=== PATIENT | male | born 1950 | race Caucasian/White ===

== ENCOUNTER 2017-06-23 08:31 | Emergency (ER) | payer MEDICARE, BC ==
[2017-06-23 09:28] VITALS: BP 124/69
--- NOTE | 2017-06-23 09:43 | UC ---
Complaint Male HPI - HPI Summary HPI Summary: pt presents with c/o urinary symptoms of dysuria, frequency and urgency X 1 day. Pt has history of BPH and UTI's. Pt has been traveling by car from [place], due to travel back in 3 days. - History of Current Complaint Chief Complaint: UCGU Stated Complaint: URINARY COMPLAINT Hx Obtained From: Patient Onset/Duration: Sudden Onset, Lasting Days - 1, Still Present Timing: Lasting Days Severity Initially: Mild Severity Currently: Moderate Character: Burning Associated Signs And Symptoms: Positive: Dysuria - Allergies/Home Medications Allergies/Adverse Reactions: Allergies Allergy/AdvReac Type Severity Reaction Status Date / Time No Known Allergies Allergy Verified 06/23/17 09:07 PMH/Surg Hx/FS Hx/Imm Hx Previously Healthy: Yes GI/ History: Other - BPH, UTI Other GI/ History: BPH - Surgical History Surgical History: Yes Surgery Procedure, Year, and Place: CARPAL TUNNEL B/L. COCCYX REMOVED DUE TO NON-HEALING FX. PROSTATE SX. LEFT SHOULDER SX--10/23/13 - Family History Known Family History: Positive: Hypertension - Social History Occupation: Retired Lives: With Family Alcohol Use: None Substance Use Type: None Smoking Status (MU): Heavy Every Day Tobacco Smoker Type: Smokeless Tobacco Amount Used/How Often: 1 can/2 days Length of Time of Smoking/Using Tobacco: since age 23 Have You Smoked in the Last Year: Yes - Immunization History Vaccination Up to Date: No Review of Systems Constitutional: Fatigue Skin: Negative Eyes: Negative ENT: Negative Respiratory: Negative Cardiovascular: Negative Gastrointestinal: Negative Genitourinary: Dysuria, Frequency, Urgency Motor: Negative Neurovascular: Negative Musculoskeletal: Negative Neurological: Negative Psychological: Negative Is Patient Immunocompromised?: No All Other Systems Reviewed And Are Negative: Yes Physical Exam Triage Information Reviewed: Yes Appearance: Well-Appearing Vital Signs: Initial Vital Signs Temp 96.4 F 06/23/17 08:59 Pulse 87 06/23/17 08:59 Resp 16 06/23/17 08:59 BP 124/69 06/23/17 08:59 Pulse Ox 98 06/23/17 08:59 Vital Signs Reviewed: Yes Eye Exam: Normal ENT Exam: Normal Dental Exam: Normal Neck exam: Normal Respiratory Exam: Normal Cardiovascular Exam: Normal Abdominal Exam: Normal Abdomen Description: Positive: Nontender Musculoskeletal Exam: Normal Neurological Exam: Normal Psychological Exam: Normal Skin Exam: Normal Complaint Male Course/Dx - Course Course Of Treatment: I discussed with the pt the need to follow up with his pCP and URologist. I discussed the risk factors associated with taking Cipro. I discussed with the pt the plan of care and he verbalized understanding and agreed to plan of care. - Differential Dx/Diagnosis Differential Diagnosis/HQI/PQRI: Urinary Tract Infection, Other - urosepsis Provider Diagnoses: UTI Discharge - Discharge Plan Condition: Stable Disposition: HOME Prescriptions: Ciprofloxacin TAB* [Cipro 500 MG TAB*] 500 mg PO Q12H #14 tab Phenazopyridine TAB* [Pyridium 100 mg TAB*] 100 mg PO Q8H #6 tab Patient Education Materials: Urinary Tract Infection in Men (ED) Referrals: Non Staff,Doctor [Primary Care Provider] - As Soon As Possible Additional Instructions: Please follow up with your PCP and your Urologist as needed.
--- NOTE | 2017-06-25 07:18 | UC ---
Progress - Progress Note Progress Note: no change
== END 2017-06-23 09:50 | disposition home or self-care (01) ==
LOC: UCCORT 08:31
DX: N39.0 Urinary tract infection, site not specified (principal); B96.1 Klebsiella pneumoniae [K. pneumoniae] as the cause of diseases classified elsewhere; R53.83 Other fatigue; N40.0 Benign prostatic hyperplasia without lower urinary tract symptoms; F17.220 Nicotine dependence, chewing tobacco, uncomplicated
CPT/HCPCS: 81003; 87077; 87086; 87186; 99212; G0463

== ENCOUNTER 2019-06-27 12:52 | Emergency (ER) | payer MEDICARE, BC ==
[2019-06-27 13:58] VITALS: BP 158/74
--- NOTE | 2019-06-27 14:42 | UC ---
Respiratory Complaint HPI - History of Current Complaint Chief Complaint: UCRespiratory Stated Complaint: COUGH,THROAT COMPLAINT Time Seen by Provider: 06/27/19 14:41 Hx Obtained From: Patient Pain Intensity: 5 - Allergies/Home Medications Allergies/Adverse Reactions: Allergies Allergy/AdvReac Type Severity Reaction Status Date / Time No Known Allergies Allergy Verified 06/27/19 13:49 Home Medications: Home Medications Insulin GLARGINE(*) [Lantus(*)] 100 units SUBCUT Q24H 06/27/19 [History Confirmed 06/27/19] PMH/Surg Hx/FS Hx/Imm Hx - Surgical History Surgical History: Yes Surgery Procedure, Year, and Place: CARPAL TUNNEL B/L. COCCYX REMOVED DUE TO NON-HEALING FX. PROSTATE SX. LEFT SHOULDER SX--10/23/13 - Family History Known Family History: Positive: Hypertension - Social History Alcohol Use: None Substance Use Type: None Smoking Status (MU): Smoker, Current Status Unknown Type: Smokeless Tobacco Amount Used/How Often: 1 can every other day Length of Time of Smoking/Using Tobacco: since age 23 Have You Smoked in the Last Year: Yes - Immunization History Vaccination Up to Date: No Physical Exam Vital Signs: Initial Vital Signs Temp 97.5 F 06/27/19 13:52 Pulse 75 06/27/19 13:52 Resp 17 06/27/19 13:52 BP 158/74 06/27/19 13:52 Pulse Ox 98 06/27/19 13:52 Discharge ED - Discharge Plan Referrals: No Primary Care Phys,NOPCP [Primary Care Provider] - Additional Instructions: Your blood pressure is elevated today to 158/74; please ensure that you have a follow up blood pressure check within 4 weeks.
--- NOTE | 2019-06-27 14:53 | UC ---
Respiratory Complaint HPI - HPI Summary HPI Summary: 68yo diabetic, visiting from [place], with several days of cough and wheeze, with associated chills and malaise. Appetite normal. Blood sugars have been running in his usual range with a fasting of 116 this morning. No history of respiratory illness. - History of Current Complaint Chief Complaint: UCRespiratory Stated Complaint: COUGH,THROAT COMPLAINT Hx Obtained From: Patient Onset/Duration: Gradual Onset Timing: Intermittent Episodes Severity Initially: Mild Severity Currently: Moderate Pain Intensity: 5 Character: Cough: Productive Aggravating Factors: Exertion Alleviating Factors: OTC Meds - using cough and cold preparation Associated Signs And Symptoms: Positive: Chills, Wheezing, Nasal Congestion - Risk Factors Pulmonary Embolism Risk Factors: Negative Cardiac Risk Factors: Hypertension, Diabetes Pseudomonas Risk Factors: Negative Tuberculosis Risk Factors: Negative - Allergies/Home Medications Allergies/Adverse Reactions: Allergies Allergy/AdvReac Type Severity Reaction Status Date / Time No Known Allergies Allergy Verified 06/27/19 13:49 Home Medications: Home Medications Insulin GLARGINE(*) [Lantus(*)] 100 units SUBCUT Q24H 06/27/19 [History Confirmed 06/27/19] PMH/Surg Hx/FS Hx/Imm Hx Endocrine History: Diabetes Cardiovascular History: Hypertension - Surgical History Surgical History: Yes Surgery Procedure, Year, and Place: CARPAL TUNNEL B/L. COCCYX REMOVED DUE TO NON-HEALING FX. PROSTATE SX. LEFT SHOULDER SX--10/23/13 - Family History Known Family History: Positive: Hypertension - Social History Occupation: Retired Lives: With Family Alcohol Use: None Substance Use Type: None Smoking Status (MU): Smoker, Current Status Unknown Type: Smokeless Tobacco Amount Used/How Often: 1 can every other day Length of Time of Smoking/Using Tobacco: since age 23 Have You Smoked in the Last Year: Yes - Immunization History Vaccination Up to Date: No Review of Systems All Other Systems Reviewed And Are Negative: Yes Constitutional: Positive: Chills Skin: Positive: Negative Eyes: Positive: Negative ENT: Positive: Sore Throat, Sinus Congestion Respiratory: Positive: Shortness Of Breath, Cough Cardiovascular: Negative: Palpitations, Chest Pain Gastrointestinal: Positive: Negative Genitourinary: Positive: Negative Motor: Positive: Negative Neurovascular: Positive: Negative Musculoskeletal: Positive: Negative Neurological: Positive: Negative Psychological: Positive: Negative Is Patient Immunocompromised?: No Physical Exam Triage Information Reviewed: Yes Appearance: Well-Appearing, No Pain Distress, Obese Vital Signs: Initial Vital Signs Temp 97.5 F 06/27/19 13:52 Pulse 75 06/27/19 13:52 Resp 17 06/27/19 13:52 BP 158/74 06/27/19 13:52 Pulse Ox 98 06/27/19 13:52 ENT: Positive: Pharyngeal erythema, TMs normal Respiratory: Positive: Decreased breath sounds, Rhonchi - throughout both lung vila Cardiovascular: Positive: RRR, No Murmur Musculoskeletal Exam: Normal Musculoskeletal: Positive: Strength Intact Neurological Exam: Normal Psychological Exam: Normal Skin Exam: Normal Respiratory Course/Dx - Course Course Of Treatment: Findings of bronchitis in 68 yo man, with increased wheeze today. Given hx of diabetes, decision made to treat with an antibiotic. Discussed use of symptomatic cough suppressant and cold preparation. - Differential Dx/Diagnosis Differential Diagnosis/HQI/PQRI: Bronchitis Provider Diagnosis: Bronchitis Discharge ED - Sign-Out/Discharge Documenting (check all that apply): Patient Departure All imaging exams completed and their final reports reviewed: No Studies - Discharge Plan Condition: Stable Disposition: HOME Prescriptions: Amoxicillin PO (*) [Amoxicillin 875 MG (*)] 875 mg PO BID #20 tab Patient Education Materials: Acute Bronchitis (ED) Referrals: No Primary Care Phys,NOPCP [Primary Care Provider] - Additional Instructions: Your blood pressure is elevated today to 158/74; please ensure that you have a follow up blood pressure check within 4 weeks. You have been prescribed amoxicillin for treatment of bronchitis. Ensure that you take the full course of medication. Continue increased rest and fluids, and anticipate that symptoms should improve in 2 to 3 days. Follow up if you develop fever or worsening symptoms of shortness of breath. - Billing Disposition and Condition Condition: STABLE Disposition: Home
== END 2019-06-27 15:06 | disposition home or self-care (01) ==
LOC: UCCORT 12:52
DX: J40 Bronchitis, not specified as acute or chronic (principal); E11.9 Type 2 diabetes mellitus without complications; I10 Essential (primary) hypertension; F17.290 Nicotine dependence, other tobacco product, uncomplicated
CPT/HCPCS: 99212; G0463

== ENCOUNTER 2024-05-18 12:18 | Inpatient (IN) ==
[2024-05-18 15:00] LABS: ABS Basophils 0.1 10^3/uL (0.0-0.1); ABS Eosinophils 0.3 10^3/uL (0.0-0.5); ABS Lymphocytes 0.9 10^3/uL (1.0-4.8); ABS Monocytes 0.5 10^3/uL (0.0-1.1); ABS Neutrophils 8.5 10^3/uL (1.5-7.6); Hematocrit 28.9 % (38-53); Hemoglobin 9.4 g/dL (13.2-16.3); Lymphocyte % 8.9 %; Mean Corpuscular Hemoglobin 24.5 pg (27-33); Mean Corpuscular Hgb Conc 32.5 g/dL (31-36); Mean Corpuscular Volume 75.3 fL (80-97); Mean Platelet Volume 6.4 fL (7.5-11.2); Platelet Count 343 10^3/uL (150-450); Red Blood Count 3.84 10^6/uL (4.06-5.63); Red Cell Distribution Width 18.6 % (12-17); White Blood Count 10.3 10^3/uL (3.6-10.2)
[2024-05-18] MEDS: cefTRIAXone 1 gm/50 mL D5W 1 GM/50 ML BAG IV ONE (15:04)
[2024-05-18] MEDS: Lactated Ringers 1000 ml BAG 1,000 ML IV ONE (15:04)
[2024-05-18 15:46] LABS: ALT 22 U/L (7-52); AST 23 U/L (13-39); Albumin 2.8 g/dL (3.2-5.2); Alkaline Phosphatase 114 U/L (35-149); Anion Gap 8 mmol/L (2-16); Blood Urea Nitrogen 29 mg/dL (6-24); C Reactive Protein 159.63 mg/L (<8.01); CO2 Carbon Dioxide 28 mmol/L (22-32); Calcium 8.8 mg/dL (8.6-10.3); Chloride 101 mmol/L (101-111); Creatinine, Serum 1.65 mg/dL (0.67-1.17); Globulin 2.9 g/dL (2-4); Glucose 105 mg/dL (70-100); Potassium 3.7 mmol/L (3.5-5.0); Sodium 137 mmol/L (135-145); Total Bilirubin 0.4 mg/dL (0.2-1.0); Total Protein 5.7 g/dL (6.4-8.9)
[2024-05-18] MEDS: Iodixanol 320 (CONTRAST) 100 ML SDV IV ONE (16:03)
[2024-05-18] MEDS: Morphine 4 MG/ML VIAL (1 ml) IV ONE (21:39)
[2024-05-18] MEDS: Vancomycin 1,500 MG in NS 0.9% 250 ml 250 ML IVPB ONE (21:43)
[2024-05-19] MEDS: Empagliflozin 25 MG TAB PO SCH (00:07)
[2024-05-19] MEDS ORDERED: Dextrose 50% Syringe 50 ml 25 GM/50 ML SYRINGE IV PUSH PRN (02:05)
[2024-05-19] MEDS: DAPTOmycin SDV 700 MG in NS 0.9% 50 ML 50 ML IVPB SCH (02:11)
[2024-05-19 02:23] LABS: % Iron Saturation 14 % (15-55); .Transferrin 106 mg/dL (203-362); Iron < 20 ug/dL (50-212); Total Iron Binding Capacity 148 mcg/dL (250-450); Unsaturated Iron Binding 128 ug/dL
[2024-05-19 02:25] LABS: Urine Appearance Turbid; Urine Bilirubin Negative (Negative); Urine Blood 2+ (Negative); Urine Color Light-Yellow; Urine Glucose 3+ (>=300 mg/dL) (Negative); Urine Ketones Negative (Negative); Urine Nitrite 2+ (Negative); Urine Protein 1+ (>=30 mg/dL) (Negative); Urine Specific Gravity 1.028 (1.002-1.030); Urine Urobilinogen Negative (Negative); Urine pH 5.5 (5.0-8.0)
[2024-05-19 02:33] LABS: Budding Yeast Present /HPF (Absent); Urine Bacteria 1+ /HPF (Absent); Urine Red Blood Cell 3+(>10/hpf) /HPF (0-Trace); Urine White Blood Cell 3+(>20/hpf) /HPF (0-Trace)
[2024-05-19 02:44] LABS: Ferritin 553.5 ng/mL (24-336)
[2024-05-19] MEDS ORDERED: DAPTOmycin SDV 700 MG in NS 0.9% 50 ML 50 ML IVPB SCH (03:00)
[2024-05-19 06:45] LABS: ABS Basophils 0.1 10^3/uL (0.0-0.1); ABS Eosinophils 0.2 10^3/uL (0.0-0.5); ABS Lymphocytes 0.4 10^3/uL (1.0-4.8); ABS Monocytes 0.4 10^3/uL (0.0-1.1); ABS Neutrophils 8.2 10^3/uL (1.5-7.6); Eosinophil % 2.6 %; Hematocrit 30.9 % (38-53); Lymphocyte % 4.2 %; Mean Corpuscular Hemoglobin 24.3 pg (27-33); Mean Corpuscular Hgb Conc 32.4 g/dL (31-36); Mean Corpuscular Volume 75.2 fL (80-97); Mean Platelet Volume 6.1 fL (7.5-11.2); Platelet Count 319 10^3/uL (150-450); Red Blood Count 4.11 10^6/uL (4.06-5.63); Red Cell Distribution Width 18.3 % (12-17); White Blood Count 9.3 10^3/uL (3.6-10.2)
[2024-05-19 07:23] LABS: Albumin 2.7 g/dL (3.2-5.2); Calcium 8.7 mg/dL (8.6-10.3); Creatinine, Serum 1.51 mg/dL (0.67-1.17); Globulin 2.8 g/dL (2-4); Magnesium 2.1 mg/dL (1.9-2.7); Potassium 3.7 mmol/L (3.5-5.0); Total Bilirubin 0.4 mg/dL (0.2-1.0); Total Protein 5.5 g/dL (6.4-8.9); eGFR CKD-EPI 47.9 (>60)
[2024-05-19] MEDS: Enoxaparin 40 MG/0.4 ML SYR SUBCUT SCH (08:29)
[2024-05-19] MEDS: cefTRIAXone 1 gm/50 mL D5W 1 GM/50 ML BAG IV SCH (12:22)
[2024-05-19] MEDS: Insulin GLARGINE 100 un/ml 10 ml VIAL SUBCUT SCH (20:18)
[2024-05-19] MEDS: Polyethylene Glycol 3350 17 GM PACKET PO SCH (20:18)
[2024-05-20] MEDS: DAPTOmycin SDV 700 MG in NS 0.9% 50 ML 50 ML IVPB SCH (02:50)
[2024-05-20 07:16] LABS: ABS Eosinophils 0.2 10^3/uL (0.0-0.5); ABS Lymphocytes 0.6 10^3/uL (1.0-4.8); ABS Monocytes 0.3 10^3/uL (0.0-1.1); Eosinophil % 2.9 %; Hematocrit 28.2 % (38-53); Hemoglobin 9.3 g/dL (13.2-16.3); Lymphocyte % 6.7 %; Mean Corpuscular Hemoglobin 24.7 pg (27-33); Mean Corpuscular Hgb Conc 32.8 g/dL (31-36); Mean Corpuscular Volume 75.3 fL (80-97); Mean Platelet Volume 6.5 fL (7.5-11.2); Platelet Count 309 10^3/uL (150-450); Red Blood Count 3.75 10^6/uL (4.06-5.63); White Blood Count 8.2 10^3/uL (3.6-10.2)
[2024-05-20 07:44] LABS: Albumin 2.7 g/dL (3.2-5.2); Calcium 8.7 mg/dL (8.6-10.3); Creatinine, Serum 1.51 mg/dL (0.67-1.17); Globulin 2.7 g/dL (2-4); Magnesium 2.2 mg/dL (1.9-2.7); Potassium 3.7 mmol/L (3.5-5.0); Total Bilirubin 0.4 mg/dL (0.2-1.0); Total Protein 5.4 g/dL (6.4-8.9); eGFR CKD-EPI 47.9 (>60)
[2024-05-20] MEDS: Memantine XR 14 mg CAP PO SCH (09:10)
[2024-05-20] MEDS ORDERED: Saline FLUSH-PERIPHERAL 10 ML SYRINGE IV FLUSH SCH (17:00)
[2024-05-20] MEDS: Saline FLUSH-PERIPHERAL 10 ML SYRINGE IV FLUSH SCH (18:04)
[2024-05-21 06:33] LABS: White Blood Count 10.7 10^3/uL (3.6-10.2)
[2024-05-21 06:34] LABS: Hematocrit 27.7 % (38-53); Hemoglobin 9.1 g/dL (13.2-16.3)
[2024-05-21 06:49] LABS: Albumin 2.6 g/dL (3.2-5.2); Calcium 8.6 mg/dL (8.6-10.3); Creatinine, Serum 1.78 mg/dL (0.67-1.17); Globulin 2.7 g/dL (2-4); Potassium 3.7 mmol/L (3.5-5.0); Total Bilirubin 0.3 mg/dL (0.2-1.0); Total Protein 5.3 g/dL (6.4-8.9); eGFR CKD-EPI 39.3 (>60)
[2024-05-21 07:07] LABS: ABS Basophils 0.1 10^3/uL (0.0-0.1); ABS Eosinophils 0.2 10^3/uL (0.0-0.5); ABS Lymphocytes 0.7 10^3/uL (1.0-4.8); ABS Monocytes 0.4 10^3/uL (0.0-1.1); ABS Neutrophils 9.3 10^3/uL (1.5-7.6); Anisocytosis 1+; Lymphocyte % 6.7 %; Mean Corpuscular Hemoglobin 24.7 pg (27-33); Mean Corpuscular Volume 74.9 fL (80-97); Mean Platelet Volume 6.3 fL (7.5-11.2); Microcytosis 2+; Platelet Count 336 10^3/uL (150-450); Red Cell Distribution Width 18.4 % (12-17)
[2024-05-21] MEDS: Sulfamethox/Trimethoprim DS TAB 800/160 mg PO SCH (11:56)
[2024-05-21 14:07] VITALS: BP 98/61
== END 2024-05-21 15:35 | DRG 689 ==
LOC: ED 12:18 → EDHOLD 22:05 → SUATTDRO 22:05 → MEDTELE 05-19 09:53
PROVIDERS: ADMIT Student in an Organized Health Care Education/Training Program; ATTEND Internal Medicine

== ENCOUNTER 2024-06-30 14:17 | Inpatient (IN) ==
[2024-06-30 15:54] LABS: ABS Basophils 0.1 10^3/uL (0.0-0.1); ABS Eosinophils 0.1 10^3/uL (0.0-0.5); ABS Lymphocytes 0.5 10^3/uL (1.0-4.8); ABS Monocytes 0.6 10^3/uL (0.0-1.1); ABS Neutrophils 14.4 10^3/uL (1.5-7.6); Eosinophil % 0.8 %; Hematocrit 29.2 % (38-53); Hemoglobin 9.5 g/dL (13.2-16.3); Lymphocyte % 3.4 %; Mean Corpuscular Hemoglobin 23.8 pg (27-33); Mean Corpuscular Hgb Conc 32.5 g/dL (31-36); Mean Corpuscular Volume 73.4 fL (80-97); Mean Platelet Volume 6.6 fL (7.5-11.2); Platelet Count 421 10^3/uL (150-450); Red Blood Count 3.98 10^6/uL (4.06-5.63); Red Cell Distribution Width 19.2 % (12-17); White Blood Count 15.7 10^3/uL (3.6-10.2)
[2024-06-30 16:28] LABS: Creatinine, Serum 1.38 mg/dL (0.67-1.17); Potassium 4.5 mmol/L (3.5-5.0); Total Bilirubin 0.4 mg/dL (0.2-1.0); eGFR CKD-EPI 53.3 (>60)
[2024-06-30 18:12] LABS: High Sensitivity Troponin 1 Hr 12 pg/mL (<20)
[2024-06-30] MEDS ORDERED: LORazepam 2 mg VIAL 1 ml ONE (19:08)
[2024-06-30] MEDS: levETIRAcetam 1000MG IVPREMIX 1,000 MG/100 ML BAG IVPB ONE (19:44)
[2024-06-30] MEDS: Lactated Ringers 1000 ml BAG 1,000 ML IV ONE (19:47)
[2024-06-30] MEDS ORDERED: Lorazepam PYXIS KEY PRN (20:33)
[2024-06-30] MEDS: LORazepam 2 mg VIAL 1 ml IV PUSH ONE (20:40)
[2024-06-30] MEDS ORDERED: Vancomycin 1,500 MG in NS 0.9% 250 ml 250 ML IVPB ONE (20:52)
[2024-06-30] MEDS: Piperacillin/Tazobac 3.375 BAG 3.375 GM/100 ML BAG IV ONE (22:09)
[2024-06-30] MEDS ORDERED: Senna TAB 8.6 mg TAB PO PRN ×2 (22:27→23:11)
[2024-06-30] MEDS ORDERED: Polyethylene Glycol 3350 17 GM PACKET PO PRN (22:27)
[2024-06-30] MEDS ORDERED: Al Hydrox/Mg Hydrox/Simet LIQ 30 ML UDC PO PRN (22:27)
[2024-06-30] MEDS ORDERED: Vancomycin 1,000 MG in NS 0.9% 250 ml 250 ML IVPB ONE (22:30)
[2024-06-30] MEDS: Vancomycin 2,000 MG in NS 0.9% 500 ml BAG 500 ML IVPB ONE (22:38)
[2024-06-30] MEDS: NS 0.9% 1000 ml BAG 1,000 ML IV SCH (22:56)
[2024-06-30] MEDS ORDERED: Vancomycin per Pharmacy 1 EA NOTE FOLLOW UP SCH (23:00)
[2024-06-30] MEDS ORDERED: Dextrose 50% Syringe 50 ml 25 GM/50 ML SYRINGE IV PUSH PRN (23:09)
[2024-06-30] MEDS ORDERED: Sodium Bicarb 650 mg (ANTACID) TAB PO PRN (23:11)
[2024-06-30] MEDS ORDERED: Sulfur Hexaflouride MICROSPHR 25 MG VIAL IV PRN (23:26)
[2024-07-01 01:36] LABS: Urine Appearance Extra Turbid; Urine Bilirubin Negative (Negative); Urine Blood 1+ (Negative); Urine Color Yellow; Urine Glucose Negative (Negative); Urine Ketones Negative (Negative); Urine Nitrite Negative (Negative); Urine Protein 1+ (>=30 mg/dL) (Negative); Urine Specific Gravity 1.027 (1.002-1.030); Urine Urobilinogen Negative (Negative)
[2024-07-01 02:04] LABS: Urine Bacteria 2+ /HPF (Absent); Urine Red Blood Cell 1+(3-5/hpf) /HPF (0-Trace); Urine White Blood Cell 3+(>20/hpf) /HPF (0-Trace)
[2024-07-01] MEDS: Heparin 5000 UNITS/ML 1 mL VIAL SUBCUT SCH (05:54)
[2024-07-01 06:27] LABS: ABS Basophils 0.1 10^3/uL (0.0-0.1); ABS Eosinophils 0.1 10^3/uL (0.0-0.5); ABS Lymphocytes 0.5 10^3/uL (1.0-4.8); ABS Monocytes 0.6 10^3/uL (0.0-1.1); ABS Neutrophils 13.1 10^3/uL (1.5-7.6); Eosinophil % 0.9 %; Hematocrit 26.5 % (38-53); Hemoglobin 8.5 g/dL (13.2-16.3); Lymphocyte % 3.4 %; Mean Corpuscular Hemoglobin 23.6 pg (27-33); Mean Corpuscular Hgb Conc 32.2 g/dL (31-36); Mean Corpuscular Volume 73.2 fL (80-97); Mean Platelet Volume 6.5 fL (7.5-11.2); Platelet Count 317 10^3/uL (150-450); Red Blood Count 3.62 10^6/uL (4.06-5.63); Red Cell Distribution Width 18.6 % (12-17); White Blood Count 14.4 10^3/uL (3.6-10.2)
[2024-07-01 08:33] LABS: Anion Gap 8 mmol/L (2-16); Blood Urea Nitrogen 26 mg/dL (6-24); C Reactive Protein 224.95 mg/L (<8.01); CO2 Carbon Dioxide 26 mmol/L (22-32); Calcium 8.4 mg/dL (8.6-10.3); Chloride 107 mmol/L (101-111); Creatinine, Serum 1.34 mg/dL (0.67-1.17); Glucose 114 mg/dL (70-100); Potassium 4.1 mmol/L (3.5-5.0); Sodium 141 mmol/L (135-145); eGFR CKD-EPI 55.2 (>60)
[2024-07-01] MEDS: Memantine XR 14 mg CAP PO SCH (09:06)
[2024-07-01] MEDS: Polyethylene Glycol 3350 17 GM PACKET PO SCH (09:12)
[2024-07-01] MEDS: Vancomycin 1000 MG in NS 0.9% 250 ML IVPB SCH ×2 (10:18→21:59)
[2024-07-01 16:21] LABS: TSH Ultra Thyroid Stim Horm 2.29 mcIU/mL (0.34-5.60)
[2024-07-01 16:33] LABS: Folate > 20.00 ng/mL (5.90-24.80); Vitamin B12 487 pg/mL (180-914)
[2024-07-01 19:29] LABS: Ferritin 620.4 ng/mL (24-336)
[2024-07-01 19:35] LABS: % Iron Saturation 16 % (15-55); .Transferrin 90 mg/dL (203-362); Iron < 20 ug/dL (50-212); Total Iron Binding Capacity 126 mcg/dL (250-450); Unsaturated Iron Binding 106 ug/dL
[2024-07-01] MEDS: Thiamine 100 MG/ML 2 ml VIAL 100 MG in NS 0.9% 50 ML 50 ML IV SCH ×2 (21:55→22:49)
[2024-07-02 11:21] LABS: ABS Basophils 0.1 10^3/uL (0.0-0.1); ABS Eosinophils 0.2 10^3/uL (0.0-0.5); ABS Lymphocytes 0.5 10^3/uL (1.0-4.8); ABS Monocytes 0.3 10^3/uL (0.0-1.1); ABS Neutrophils 8.6 10^3/uL (1.5-7.6); Eosinophil % 1.9 %; Hematocrit 27.7 % (38-53); Lymphocyte % 5.2 %; Mean Corpuscular Hgb Conc 32.6 g/dL (31-36); Mean Corpuscular Volume 73.4 fL (80-97); Mean Platelet Volume 6.4 fL (7.5-11.2); Platelet Count 342 10^3/uL (150-450); Red Blood Count 3.77 10^6/uL (4.06-5.63); Red Cell Distribution Width 18.5 % (12-17); White Blood Count 9.6 10^3/uL (3.6-10.2)
[2024-07-02 11:50] LABS: Albumin 2.8 g/dL (3.2-5.2); Albumin/Globulin Ratio 0.9 (1-3); Calcium 8.9 mg/dL (8.6-10.3); Creatinine, Serum 1.38 mg/dL (0.67-1.17); Magnesium 2.2 mg/dL (1.9-2.7); Total Bilirubin 0.6 mg/dL (0.2-1.0); Total Protein 5.8 g/dL (6.4-8.9); eGFR CKD-EPI 53.3 (>60)
[2024-07-02] MEDS: Vancomycin Trough Check NOTE FOLLOW UP ONE (12:29)
[2024-07-02] MEDS ORDERED: Propofol 10 MG/ML 20 ML BTL ONE (14:40)
[2024-07-02] MEDS ORDERED: Lidocaine 1% MPF 2 ML VIAL ONE (14:40)
[2024-07-02] MEDS ORDERED: Senna TAB 8.6 mg TAB PO PRN (15:33)
[2024-07-02] MEDS ORDERED: LORazepam 2 mg VIAL 1 ml IV PUSH PRN (15:33)
[2024-07-02] MEDS ORDERED: Morphine 2 MG/ML SYRINGE IV PRN (15:33)
[2024-07-02] MEDS ORDERED: Ondansetron ODT 4 mg TAB 4 MG TAB SL PRN (15:33)
[2024-07-02] MEDS: Scopolamine 1 mg/72hr PATCH TRANSDERM SCH (16:19)
[2024-07-02 17:09] VITALS: BP 99/62
[2024-07-04] MEDS: Morphine 2 MG/ML SYRINGE IV PRN (16:29)
[2024-07-05] MEDS ORDERED: Vancomycin Trough Check NOTE FOLLOW UP ONE (09:30)
[2024-07-05] MEDS: Vancomycin Trough Check NOTE FOLLOW UP ONE (11:09)
[2024-07-06 06:49] LABS: Creatinine, Serum 0.93 mg/dL (0.67-1.17); Vancomycin Random 18.1 mcg/mL; eGFR CKD-EPI 85.6 (>60)
[2024-07-06] MEDS: Vancomycin Random Level NOTE FOLLOW UP ONE (07:56)
[2024-07-06] MEDS: Vancomycin 1,750 MG in NS 0.9% 500 ml BAG 500 ML IVPB SCH (08:02)
[2024-07-06] MEDS ORDERED: Morphine ORAL CONCENTRATE 5 MG/0.25 ML ORAL.SYRIN SL PRN (10:28)
== END 2024-07-06 10:50 | DRG 872 ==
LOC: ED 14:17 → EDHOLD 22:27 → SUATTDRO 22:27 → MEDTELE 07-01 10:20
PROVIDERS: ADMIT Internal Medicine; ATTEND Internal Medicine